=== PATIENT | female | born 1940 | race Caucasian/White ===

== ENCOUNTER 2024-01-17 12:19 | Outpatient (CLI) | payer BC ==
[2024-01-17 12:49] LABS: ALBUMIN 3.9 G/DL (3.4-5.0); ANION GAP 7 (8-16); BLOOD UREA NITROGEN 36 MG/DL (7-18); BUN/CREATININE RATIO 27.9 (10.0-20.0); CALCIUM 9.2 MG/DL (8.5-10.1); CHLORIDE 106 MMOL/L (99-107); CREATININE 1.29 MG/DL (0.40-0.90); GLUCOSE 95 MG/DL (70-104); POTASSIUM 4.5 MMOL/L (3.5-5.1); SODIUM 140 MMOL/L (135-145); TOTAL CARBON DIOXIDE 27.4 MMOL/L (24-32); eGFR 39 ML/MIN
[2024-01-17] MEDS ORDERED: iohexol 300mg/ml 100ml inj. ONE (13:06)
== END 2024-01-17 23:59 | disposition home or self-care (01) ==
LOC: 64 CT 12:19
PROVIDERS: ATTEND Internal Medicine Interventional Cardiology
DX: I70.213 Atherosclerosis of native arteries of extremities with intermittent claudication, bilateral legs (principal); I65.21 Occlusion and stenosis of right carotid artery; I70.8 Atherosclerosis of other arteries; R60.0 Localized edema
CPT/HCPCS: 36415; 72193; 80048; Q9967

== ENCOUNTER 2025-05-01 08:00 | Day surgery (SDC) | payer BC ==
[~2025-05-01] VITALS: Ht 152.4 cm; Wt 52.2 kg
[~2025-05-01 08:00] MED LIST: ACET-890 PO; ASPI-1265 PO; ATOR20TA PO; CALC300T4 PO; DENO60DI SUBCUT; FAMO-49 PO; FERR325T35 PO; FOLI0.4T6 PO; LISI20TA28 PO; QUET25TA PO; ROSU10TA98 PO; SODI650T29 PO; TRAM50TA2 PO
[2025-05-01] MEDS ORDERED: normal saline 1000ml 1,000 ML IV SCH (08:35)
[2025-05-01] MEDS ORDERED: HYDR-3964 PO (09:07)
[2025-05-01] MEDS ORDERED: AMLO5TAB16 PO (09:07)
[2025-05-01] MEDS ORDERED: POTA-205 PO (09:07)
[2025-05-01 09:11] VITALS: BP 100/45; PULSE 87; RESP 16; TEMP 99; O2SAT 100
[2025-05-01 09:19] VITALS: RESP 16; O2SAT 100
[2025-05-01 10:00] VITALS: BP 123/59; PULSE 85; RESP 16; O2SAT 94
[2025-05-01 10:29] VITALS: BP 121/49; PULSE 79; RESP 16; O2SAT 95
[2025-05-01 10:45] VITALS: BP 110/51; PULSE 78; RESP 16; O2SAT 99
[2025-05-01 11:00] VITALS: BP 119/57; PULSE 80; RESP 16; O2SAT 99
--- NOTE | 2025-05-01 15:42 | PROGRESS NOTE ---
H&P - Interval Note Providers to CC ~ Patient examined and condition: Yes Interval changes as follows: Updated current H and P on file, Here for drain check and possible removal vs exchange. Risks benefits alt d/w pt informed consent disclosed. CHANTAL PRITCHARD MD May 01, 2025 15:42
--- NOTE | 2025-05-01 15:44 | PROGRESS NOTE ---
Progress Note - Angio Providers to CC ~ Angio Progress Note: Both drains show no significant drainage last few days and CT shows no significant remaining pockets for infection. A febrile. VSS. Both drains removed. [place] would be follow up soon in next 1-[address] primary MD Dr Brenda Valadez. CHANTAL PRITCHARD MD May 01, 2025 15:44
--- NOTE | 2025-05-01 16:57 | RADIOLOGY REPORT ---
CT-guided abdomen and pelvis limited for evaluation of drainage catheters HISTORY: Evaluate pigtail catheters within the right lower quadrant as well as lower midline pelvis. These catheters were placed by an outside facility. Upon evaluation of the catheter exit and MICHEAL suction bulb note was made of moderate thick debris. The patient states that there is been no output for several days. She denies fever chills or night sweats. CT examination of the mid abdomen to pelvis demonstrates the right-sided pigtail catheter has been pulled out and is in the subcutaneous space of the right lower lateral abdomen and pelvis. The midline pelvic drain demonstrates no evidence of significant adjacent fluid collection. The urinary bladder is seen with Jennings catheter in place. The DLP was 260.33. Each catheter was cut and over an Amplatz wire removed in its entirety. Triple antibiotic ointment was placed at the skin exit site. Instructions given to the patient to follow-up with her primary care physician. IMPRESSION: Both catheters were removed. The right lower abdomen catheter had been pulled out of its existing retroperitoneal position and in the subcutaneous space. There was no evidence of significant fluid collection where the catheter had been prior. The pelvic drainage catheter also demonstrated no significant adjacent fluid collection and was therefore removed.
== END 2025-05-01 11:15 | disposition home or self-care (01) ==
LOC: SSTAY O 08:00
PROVIDERS: ATTEND Radiology Diagnostic Radiology
DX: Z48.03 Encounter for change or removal of drains (principal); T85.898A Other specified complication of other internal prosthetic devices, implants and grafts, initial encounter; I10 Essential (primary) hypertension; I73.9 Peripheral vascular disease, unspecified; K68.19 Other retroperitoneal abscess; M19.90 Unspecified osteoarthritis, unspecified site; Y83.8 Other surgical procedures as the cause of abnormal reaction of the patient, or of later complication, without mention of misadventure at the time of the procedure; Y92.89 Other specified places as the place of occurrence of the external cause; Z98.890 Other specified postprocedural states
CPT/HCPCS: 74150; G0463; J7030; A4421; A6258; A6449

== ENCOUNTER 2025-05-02 21:36 | Emergency (ER) | payer BC ==
[~2025-05-02] VITALS: Ht 152.4 cm; Wt 52.3 kg
[~2025-05-02 21:36] MED LIST changes: +AMLO5TAB16 PO; -FERR325T35 PO; +HYDR-3964 PO; -LISI20TA28 PO; +POTA-205 PO; -QUET25TA PO; -ROSU10TA98 PO; -TRAM50TA2 PO
--- NOTE | 2025-05-02 22:11 | Physician Documentation ---
History of Present Illness ~ Chief Complaint: Wound Stated Complaint: POST OP COMPLICATIONS Time Seen by MD: 22:11 Primary Medical Doctor: Dr Villegas HPI 84-year-old female presenting with concern for an infection around a drain site The patient tells me that she had 2 abdominal drains, which were removed yesterday. One was in the right lower abdomen, and 1 was in the central lower abdomen. She has been cleaned the wounds and putting antibiotic ointment on them. Today she had a low-grade fever, and so she came to get evaluated because the paperwork said to come in if she had a fever. She denies any changes to the wound including no significant pain at the drain sites. No redness around the site. No abdominal pain. No other infectious type symptoms. Tetanus within 5 years?: Yes Medication Reconciliation Allergies: Coded Allergies: hydromorphone (Verified Allergy, Unknown, 03/30/25) Patient becomes very confused, states she does not respond well. Scheduled Amlodipine Besylate (Amlodipine Besylate), 1 TAB PO DAILY, (Reported) Aspirin (Aspirin), 1 TAB PO DAILY, (Reported) Atorvastatin Calcium* (Lipitor*), 1 TAB PO DAILY, (Reported) Calcium Carbonate* (Tums*), 1 TAB PO Q12H, (Reported) Denosumab (Prolia), 1 SYR SUBCUT ONCE, (Reported) Famotidine (Famotidine), 1 TAB PO Q12H, (Reported) Folic Acid* (Folic Acid*), 1 TAB PO DAILY, (Reported) Potassium Chloride (Potassium Chloride), 1 TAB PO DAILY, (Reported) Sodium Bicarbonate (Antacid), 1 TAB PO Q12H, (Reported) Scheduled PRN Acetaminophen (Tylenol), 1-2 TAB PO QID PRN PRN for pain or fever, (Reported) Hydrocodone Bit/Acetaminophen (Hydrocodon-Acetaminophen 5-325), 1 TAB PO Q6H PRN for pain, (Reported) Discontinued Medications Ferrous Sulfate (Ferosul), 325 MG PO day, (Reported) Discontinued Reason: patient no longer taking Lisinopril (Lisinopril), 1 TAB PO DAILY, (Reported) Discontinued Reason: patient no longer taking Quetiapine Fumarate (Seroquel), 1 TAB PO HS, (Reported) Discontinued Reason: patient no longer taking Rosuvastatin Calcium (Rosuvastatin Calcium), 1 TAB PO HS, (Reported) Discontinued Reason: patient no longer taking Tramadol HCl (Tramadol HCl), 1 TAB PO TID PRN PRN for pain, (Reported) Discontinued Reason: patient no longer taking Past Medical History Patient History: Patient reports no known family medical history. Review of Systems Constitutional: Reports: fever Gastrointestinal: Denies: abdominal pain Integumentary: Reports: wound(s) Physical Exam Vital Signs: Temperature: 99.1, Source: Temporal, Heart Rate: 98, Respiratory Rate: 20, BP: 105/58, Pulse Oximetry: 97, Weight: 52.270 Oxygen Flow Rate: 0 Physical Exam General: This is a pleasant and well-appearing elderly woman, at bedside HEENT: Atraumatic, oropharynx is moist Heart: Mild tachycardic, appears regular Lungs: normal work of breathing, normal oxygen saturation on room air Abdomen: Soft, nondistended. The patient has 2 bandages overlying wounds, 1 on her central lower abdomen and 1 on the right lower abdomen. No significant surrounding erythema or purulent drainage. No tenderness around the sites and no generalized abdominal tenderness or peritoneal findings : Jennings catheter in place Neuro: Alert and oriented Psychiatric: Calm and cooperative with exam Progress Results/Orders Results/Orders Orders - CHANTAL FINCH MD Culture Blood (05/02/25 22:17) Chest,Single View (05/02/25 22:17) Monitor (05/02/25 22:17) Oxygen (05/02/25 22:17) Saline Lock (05/02/25 22:17) Straight Cath For Urine Sample (05/02/25 22:17) Cult Urine + [place] Ct (05/03/25 00:59) Completed Orders - CHANTAL FINCH MD Cbc/Diff (05/02/25 22:17) Chest,Single View (05/02/25 22:17) Procalcitonin (05/02/25 22:17) BMP (05/02/25 22:17) Lacticsepsis (05/02/25 22:17) Ua W/Microscopic, Cult If Ind (05/03/25 00:00) Vital Signs 05/02/25 05/02/25 05/03/25 21:57 22:46 00:46 Temp 99.1 98.2 Pulse 98 70 Resp 20 14 16 B/P (MAP) 105/58 124/80 Pulse Ox 97 99 O2 Flow Rate 0 Laboratory Tests Test 05/02/25 22:29 05/03/25 00:00 White Blood Count 9.7 Red Blood Count 2.91 L Hemoglobin 9.2 L Hematocrit 27.6 L Mean Corpuscular Volume 94.6 Mean Corpuscular Hemoglobin 31.5 H Mean Corpuscular Hemoglobin Concent 33.3 Red Cell Distribution Width 16.6 H Platelet Count 268 Mean Platelet Volume 9.0 Neutrophils (%) (Auto) 68.6 Lymphocytes (%) (Auto) 22.0 Monocytes (%) (Auto) 5.5 Eosinophils (%) (Auto) 3.2 Basophils (%) (Auto) 0.7 Neutrophils # (Auto) 6.6 Lymphocytes # (Auto) 2.1 Monocytes # (Auto) 0.5 Eosinophils # (Auto) 0.3 Basophils # (Auto) 0.1 CBC Comment Sodium Level 135 Potassium Level 3.8 Chloride Level 105 Carbon Dioxide Level 21.8 L Anion Gap 8 Blood Urea Nitrogen 22 H Creatinine 1.26 H Estimated GFR/1.73 m2 40 BUN/Creatinine Ratio 17.5 Glucose Level 103 Lactic Acid Level 1.3 Calcium Level 9.0 Albumin 3.0 L Procalcitonin < 0.05 Chemistry Comments Urine Specimen Description Non-specified Urine Color Yellow Urine Clarity Cloudy Urine pH >=9.0 H Urine Specific [place] <=1.005 Urine Protein 100 H Urine Glucose (UA) Negative Urine Ketones Negative Urine Occult Blood Negative Urine Nitrite Negative Urine Bilirubin Small Urine Urobilinogen 0.2 Urine Leukocyte Esterase Moderate H Urine RBC 0-2 Urine WBC 0-4 Urine Squamous Epithelial Cells Few Urine Transitional Epithelial Cells Few Urine Triple Phosphate Crystals 2+ Urine Amorphous Phosphates 3+ Urine Bacteria 4+ Urine Culture Indicated Indicated Volume Urine Centrifuged 6 ml Urine Comment Low volume Microbiology Date/Time Source Procedure Growth Status 05/03/25 00:59 Urine Nonspecified Urine Culture - Preliminary Culture received. Resulted 05/02/25 22:35 Blood Arm Right Blood Culture - Preliminary NEGATIVE (LESS THAN 24 HOURS) Resulted Medical Decision Making Additional information obtaine: old records Findings Reviewed past admission records and tube removal record Differential Dx:Considerations: Include: Abscess, Cellulitis, Healing wound Additional Comment 84-year-old female who presents with concern for possible infection around a recent surgical site. Here in the ED she is afebrile, very well-appearing. Her wounds do not appear infected. She has no abdominal tenderness. Labs are overall unremarkable. No evidence of dangerous other infection or sepsis. She was reassured and will continue with home care. She will return if she does develop signs of infection. Departure Disposition: HOME / SELF CARE / HOMELESS Impression: Primary Impression: Wound Referrals: NO PRIMARY CARE PROVIDER (PCP) Education Educated: Patient Educated regarding: diagnosis, treatment, need for follow up Signature Scribe Signature: na Attestation: CHANTAL Leung MD May 02, 2025 22:11
[2025-05-02 22:44] LABS: MEAN PLATELET VOLUME 9.0 FL (7.4-10.4); RED CELL DISTRIBUTION WIDTH 16.6 % (11.5-14.5)
[2025-05-02 22:55] LABS: CREATININE 1.26 MG/DL (0.40-0.90); TOTAL CARBON DIOXIDE 21.8 MMOL/L (24-32); eCRCL 23 ML/MIN; eGFR 40 ML/MIN
--- NOTE | 2025-05-02 23:08 | RADIOLOGY REPORT ---
CHEST RADIOGRAPH INDICATION: SOB TECHNIQUE: Single frontal view of the chest was obtained COMPARISON: DI CHEST,SINGLE VIEW on DOS: 04/05/25, DI CHEST,SINGLE VIEW on DOS: 12/03/24 FINDINGS: Lines and Tubes: None Lungs: Clear Pleura: No effusion. No pneumothorax. Cardiomediastinal contours: Unremarkable Bones: Unremarkable IMPRESSION: 1. No acute disease.
[2025-05-03 00:46] VITALS: BP 124/80; PULSE 70; RESP 16; TEMP 98.2; O2SAT 99
[2025-05-03 00:47] LABS: LEUKOCYTE ESTERASE ,URINE MODERATE (Neg); NITRITES, URINE NEGATIVE (Neg); OCCULT BLOOD,URINE NEGATIVE (Neg)
[2025-05-03 00:50] LABS: UA COLLECTION TYPE NON-SPECIFIED
[2025-05-03 00:58] LABS: AMORPHOUS PHOSPHATES 3+; SQUAMOUS EPITHELIAL CELL,UR FEW /LPF (FEW); TRIPLE PHOSPHATE CRYST 2+ /HPF (NEGATIVE)
== END 2025-05-03 00:49 | disposition home or self-care (01) ==
LOC: ER 21:37
DX: S30.92XA Unspecified superficial injury of abdominal wall, initial encounter (principal); R50.9 Fever, unspecified; Z88.5 Allergy status to narcotic agent; X58.XXXA Exposure to other specified factors, initial encounter; Y93.89 Activity, other specified; Y92.89 Other specified places as the place of occurrence of the external cause; Y99.8 Other external cause status
CPT/HCPCS: 36415; 71045; 80048; 81001; 83605; 84145; 85025; 87040; 87088; 99284